=== PATIENT | male | born 1970 | race Caucasian/White ===

== ENCOUNTER 2023-01-07 06:07 | Emergency (ER) | payer SELFPAY | END 2023-01-07 09:11 | disposition home or self-care (01) | LOC: CSHERS 06:07 | DX: J20.9 Acute bronchitis, unspecified (principal); F17.210 Nicotine dependence, cigarettes, uncomplicated | CPT/HCPCS: 71046 ==

== ENCOUNTER 2023-09-21 12:30 | Emergency (ER) | payer SELFPAY | END 2023-09-21 13:22 | disposition home or self-care (01) | LOC: CSHERS 12:30 | DX: M54.50 Low back pain, unspecified (principal); F17.210 Nicotine dependence, cigarettes, uncomplicated | CPT/HCPCS: 96372; 99283; J1885 ==

== ENCOUNTER 2024-02-22 14:48 | Emergency (ER) | payer SELFPAY | END 2024-02-22 17:06 | disposition home or self-care (01) | LOC: CSHERS 14:48 | DX: M70.22 Olecranon bursitis, left elbow (principal); F17.210 Nicotine dependence, cigarettes, uncomplicated | CPT/HCPCS: 99283 ==

== ENCOUNTER 2024-03-10 17:23 | Emergency (ER) | payer SELFPAY | END 2024-03-10 19:35 | disposition home or self-care (01) | LOC: CSHERS 17:23 | DX: M70.22 Olecranon bursitis, left elbow (principal); F17.210 Nicotine dependence, cigarettes, uncomplicated | CPT/HCPCS: 99283 ==